=== PATIENT | female | born 1995 | race Caucasian/White ===

== ENCOUNTER 2022-12-08 21:10 | Outpatient (REF) | payer OTHER, SELFPAY ==
[2022-12-11 22:07] LABS: Age Gdln ACOG Testing Note (.); IGP, rfx Aptima HPV ASCU Note (.)
== END 2022-12-08 21:11 | disposition home or self-care (01) ==
LOC: LAB 21:10
PROVIDERS: Visit Provider Physician Assistant
DX: Z01.419 Encounter for gynecological examination (general) (routine) without abnormal findings (principal)
CPT/HCPCS: G0145

== ENCOUNTER 2023-01-08 14:44 | Outpatient (OUT) | payer OTHER, SELFPAY | END 2023-01-08 14:45 | disposition home or self-care (01) | LOC: PST 14:45 | PROVIDERS: Visit Provider Obstetrics & Gynecology | DX: Z01.818 Encounter for other preprocedural examination (principal); Z30.2 Encounter for sterilization ==

== ENCOUNTER 2023-01-16 07:37 | Day surgery (SDC) | payer OTHER, SELFPAY ==
[2023-01-08 15:04] VITALS: BP 125/82; PULSE 75; RESP 18; TEMP 36.3; O2SAT 96; BMI 39.3
[2023-01-16] VITALS (8 sets, daily range): BP systolic 110–133; BP diastolic 60–85; PULSE 59–86; RESP 14–24; TEMP 35.4–36.2; O2SAT 92–100; BMI 38.9
[2023-01-16 07:54] LABS: Basophils Percent Auto 0.5 % (0.2-2.0); Eosinophils Absolute Auto 0.1 10^3/uL (0.0-0.7); Eosinophils Percent Auto 1.2 % (0.9-7.0); Hemoglobin 11.3 g/dL (12.0-16.0); Immature Granulocytes Abs Auto 0.02 10^3/uL (0.00-0.03); Immature Granulocytes Pct Auto 0.3 % (0.0-0.5); Lymphocytes Absolute Auto 2.8 10^3/uL (1.2-3.8); Lymphocytes Percent Auto 36.5 % (20.5-60.0); Mean Corpuscular HGB Conc 29.7 g/dL (29.9-35.2); Mean Corpuscular Hemoglobin 21.6 pg (26.7-34.0); Mean Corpuscular Volume 72.5 fL (81.0-99.0); Mean Platelet Volume 10.2 fL (9.5-13.5); Monocytes Absolute Auto 0.5 10^3/uL (0.3-0.8); Monocytes Percent Auto 6.2 % (1.7-12.0); Neutrophils Absolute Auto 4.2 10^3/uL (1.4-6.5); Neutrophils Percent Auto 55.3 % (43.0-75.0); Platelet Count 316 10^3/uL (150-450); Red Blood Count 5.24 10^6/uL (4.20-5.40); Red Cell Distribution Width 17.1 % (11.0-15.0); White Blood Count 7.6 10^3/uL (4.0-11.0)
[2023-01-16] MEDS: LACTATED RINGER'S SOLUTION 1,000 ML 50 ML IV ×2 (07:58→10:50)
[2023-01-16 08:13] LABS: HCG Quantitative <1 mIU/mL
--- NOTE | 2023-01-16 10:49 | PM.ONB ---
Brief Operative Note Date of procedure: 01/16/23 Pre-op diagnosis: desires permanent sterilization Post-op diagnosis: other (lt large ovarian cyst) Procedure: NAME OF PROCEDURE: robotic assisted bilateral laparoscopic salpingectomy with lt ovarian cystotomy PROCEDURE: The patient was taken back to the Operating Room where she was given general anesthesia without difficulty. She was then prepped and draped in the normal sterile fashion after being placed in a dorsal lithotomy position. A wet sponge stick was placed into the patient's vagina. Attention was then turned to the patient's abdomen, where a scalpel was used to make a small infraumbilical incision. The S retractors were then used to dissect the underlying layers until the fascia could be seen. The fascia was then grasped with Chato clamps and tented up. A knife was then used to make a small incision to the fascia. The muscle was identified, at that time two sutures of #0 Vicryl on a GI needle was then used and placed through the fascia. the peritoneum was then identified and entered bluntly. The 10-4 Jj was then placed into the patient's abdomen. This was confirmed with direct visualization of the bowel, using the laparoscope. The patient's abdomen was then insufflated using approximately 4 liters of CO2 gas. Survey of the patient's abdomen demonstrated ovaries were normal in appearance as well as both tubes and uterus. A second and third rt and lt lateral robotic ports which were 8 mm in size, was then placed after the skin incision was made under direct visualization . robotic arms engaged. The patient's tube on the patient's right side was identified and tented up using a grasper, the vessel sealer apparatus was then used to come across the mesosalpingx from the fimbriated end to the insertion site at the uterus, the tube was then amputated and removed in its entirety. This was done on the contralateral side. The tubes were the removed from the patients abdomen. lt ovarian cystotomy performed using vessel sealer. Excellent hemostasis was noted. The lateral ports were then moved under direct visualization with excellent hemostasis. All instruments were removed from the patient's abdomen. The fascia was closed using the #0 Vicryl on GI needle. The skin was closed using 4-0 Vicryl subcuticularly. All instruments were removed from the patient's vagina as well. The patient was taken out of the dorsal lithotomy position and placed in the supine position and taken to recovery in stable condition. Sponge, lap and needle counts were correct x2. Anesthesia: TRISTIN Surgeon: Cheko Barnard Radiographer Cardiac Catheterization: Nilsa Miller Estimated blood loss (mL): 5 Pathology: other (tbes) Condition: stable Disposition: PACU
[2023-01-16] MEDS: HYDROMORPHONE HCL 0.5 MG/0.5 ML SYRINGE 0.4 MG IV (11:13)
--- NOTE | 2023-01-16 11:32 | PC.NURSE ---
Medicated for pain as ordered at umbilicus; peripad dry
== END 2023-01-16 12:14 | disposition home or self-care (01) ==
PROVIDERS: Visit Provider Obstetrics & Gynecology
PROC: (CPT 840; principal; 2023-01-16 08:50)
DX: Z30.2 Encounter for sterilization (principal); N83.202 Unspecified ovarian cyst, left side; F41.9 Anxiety disorder, unspecified; F32.A Depression, unspecified
CPT/HCPCS: 49322; 58661; 36415; 84702; 85025; 88302; J1170

== ENCOUNTER 2024-07-20 14:49 | Outpatient (REF) | payer OTHER, SELFPAY | END 2024-07-20 14:50 | disposition home or self-care (01) | LOC: LAB 14:49 | PROVIDERS: Visit Provider Physician Assistant | DX: Z01.419 Encounter for gynecological examination (general) (routine) without abnormal findings (principal) | CPT/HCPCS: 88175 ==